=== PATIENT | female | born 1990 | race Caucasian/White ===

== ENCOUNTER 2020-09-08 00:23 | Emergency (ER) | payer OTHER ==
[~2020-09-08 00:23] MED LIST: AMOXICILLIN500 MG PO; CLARITIN10 M2 PO; COLACE 100MG C100 MG PO; DELSYM30 MG/5 ML PO; FLONASE 0.05% N16 GM; IBUPROFEN600 MG PO; PRENATAL VITAM1 EAC8 PO; ZOFRAN4 MG PO
[2020-09-08 02:37] LABS: HEMOGLOBIN 14.9 gm/dl (12.3-15.3); RED BLOOD COUNT 4.34 M/UL (4.00-5.10); WHITE BLOOD COUNT 10.4 K/UL (4.5-11.0)
[2020-09-08 02:58] LABS: BUN/CREATININE RATIO 15 (0-10)
[2020-09-08] MEDS ORDERED: IBUPROFEN800 MG PO (06:30)
[2020-09-08] MEDS ORDERED: FLAGYL500 MG PO (06:30)
[2020-09-08] MEDS ORDERED: ZOFRAN 4 MG TAB4 MG PO (06:30)
== END 2020-09-08 06:38 | disposition home or self-care (01) ==
LOC: ER1 00:23
PROVIDERS: Emergency Medicine
DX: A04.72 Enterocolitis due to Clostridium difficile, not specified as recurrent (principal); F17.210 Nicotine dependence, cigarettes, uncomplicated
CPT/HCPCS: 80053; 81001; 83605; 83690; 84703; 85025; 96374; 96375; 99284; J2270; J2405; Q9967